=== PATIENT | female | born 1975 | race American Indian/Alaskan Native ===

== ENCOUNTER → 2017-07-08 | Outpatient (CLI) | payer BC, OTHER ==
[~2017-07-08] MED LIST: ALBU90OI6 INH; ALLEGRA ALLERG180 MG PO; ARIP10 PO; Augmentin 875-1 EACH PO; BUPR150ER PO; BUSP10 PO; Bactrim Ds Tab1 EACH PO; Cymbalta30 MG PO; FLUT220OIA INH; Keflex500 MG PO; LOSA50 PO; LOSARTAN POTASS25 MG PO; MECL25 PO; MEDR10 PO; MONT10T PO; MUSCLE RELAXOR; Norco 5-325 Ta1 EACH PO; ORTHO TRI-CYCL1 EACH PO; Pepcid40 MG PO; Percocet 5-3251 EACH PO; Pseudoephedrine30 MG PO; QUET25 PO; Robaxin-750750 MG PO; TIZANIDINE HCL4 MG PO; TRAM50 PO; TRAZ50 PO; VENL37.5ER PO; Zofran Odt4 MG SL
== END ==
LOC: LAB SHORT 13:18 → LAB 13:18
DX: B36.9 Superficial mycosis, unspecified (principal)
CPT/HCPCS: 87102

== ENCOUNTER 2017-08-08 06:19 | Emergency (ER) | payer OTHER, BC ==
[~2017-08-08] VITALS: Ht 162.6 cm; Wt 98.0 kg
== END 2017-08-08 08:14 | disposition home or self-care (01) ==
LOC: ER 06:19
DX: S39.012A Strain of muscle, fascia and tendon of lower back, initial encounter (principal); S86.912A Strain of unspecified muscle(s) and tendon(s) at lower leg level, left leg, initial encounter; S83.92XA Sprain of unspecified site of left knee, initial encounter; W01.0XXA Fall on same level from slipping, tripping and stumbling without subsequent striking against object, initial encounter; Y99.0 Civilian activity done for income or pay; J45.909 Unspecified asthma, uncomplicated; F41.9 Anxiety disorder, unspecified; I10 Essential (primary) hypertension; Z87.891 Personal history of nicotine dependence; Z88.8 Allergy status to other drugs, medicaments and biological substances; Z79.899 Other long term (current) drug therapy
CPT/HCPCS: 29505; 73562-LT; 99283

== ENCOUNTER 2017-09-18 11:23 | Emergency (ER) | payer BC, OTHER ==
[~2017-09-18] VITALS: Ht 162.6 cm; Wt 95.2 kg
[2017-09-18 12:20] LABS: Calcium, Ionized (POC) 1.18 mmol/L (1.10-1.46); Chloride (POC) 104 mmol/L (98-108); Creatinine (POC) 0.4 mg/dL (0.6-1.0); Glucose (ISTAT POC) 100 mg/dL (70-99); Hemoglobin (POC) 14.3 g/dL (12.0-16.0); Potassium (POC) 3.8 mmol/L (3.5-5.5); Sodium (POC) 141 mmol/L (135-148); Total CO2 (POC) 25 mmol/L (21-32)
== END 2017-09-18 13:38 | disposition home or self-care (01) ==
LOC: ER 11:23
PROVIDERS: Emergency Medicine
DX: E16.2 Hypoglycemia, unspecified (principal); Z88.8 Allergy status to other drugs, medicaments and biological substances; Z79.899 Other long term (current) drug therapy; J45.909 Unspecified asthma, uncomplicated; F41.9 Anxiety disorder, unspecified; I10 Essential (primary) hypertension; Z90.49 Acquired absence of other specified parts of digestive tract; Z87.891 Personal history of nicotine dependence
CPT/HCPCS: 36415; 80047; 82947; 85014; 99283

== ENCOUNTER → 2017-11-11 | Outpatient (CLI) | payer BC, OTHER ==
[2017-11-11 18:02] LABS: Anion Gap 9 mmol/L (6-16); Blood Urea Nitrogen 5 mg/dL (8-24); CO2, Blood 29 mmol/L (21-32); Chloride, Blood 107 mmol/L (98-108); Creatinine, Blood 0.71 mg/dL (0.40-1.00); Glomerular Filtration Rate >60 (60-); Glucose, Blood 86 mg/dL (70-99); Potassium, Blood 3.8 mmol/L (3.5-5.5); Sodium, Blood 145 mmol/L (136-145)
[2017-11-16 23:07] LABS: FREE INSULIN 67 uU/mL (.); TOTAL INSULIN 67 uU/mL (.)
== END ==
LOC: LAB SHORT 17:34 → LAB EV 17:34
PROVIDERS: Internal Medicine Endocrinology, Diabetes & Metabolism
DX: E16.1 Other hypoglycemia (principal)
CPT/HCPCS: 36415; 80048; 83525; 83527

== ENCOUNTER 2018-03-10 20:32 | Emergency (ER) | payer BC, OTHER ==
[~2018-03-10] VITALS: Ht 162.6 cm; Wt 92.1 kg
[2018-03-10] MEDS ORDERED: HYDCHL12.5 PO (22:20)
== END 2018-03-11 00:03 | disposition home or self-care (01) ==
LOC: ER 20:32
DX: I10 Essential (primary) hypertension (principal); Z88.8 Allergy status to other drugs, medicaments and biological substances; Z79.899 Other long term (current) drug therapy; Z87.891 Personal history of nicotine dependence
CPT/HCPCS: 70450; 96372; 99283-25; J1885

== ENCOUNTER 2018-08-05 22:23 | Emergency (ER) | payer BC, OTHER ==
[~2018-08-05] VITALS: Ht 162.6 cm; Wt 90.3 kg
[~2018-08-05 22:23] MED LIST changes: +HYDCHL12.5 PO
[2018-08-05] MEDS ORDERED: METF500 (22:37)
[2018-08-05] MEDS ORDERED: BUSP5 (22:38)
[2018-08-05] MEDS ORDERED: TRAM50 PO (22:38)
[2018-08-05] MEDS ORDERED: MELO7.5 (22:39)
[2018-08-06] MEDS ORDERED: IBUP400 PO (00:31)
[2018-08-06] MEDS ORDERED: Norco 10-325 T1 EACH PO (00:31)
== END 2018-08-06 00:44 | disposition home or self-care (01) ==
LOC: ER 22:23
DX: M25.461 Effusion, right knee (principal); Z88.5 Allergy status to narcotic agent; Z88.8 Allergy status to other drugs, medicaments and biological substances; I10 Essential (primary) hypertension; F41.9 Anxiety disorder, unspecified; Z90.49 Acquired absence of other specified parts of digestive tract; Z87.891 Personal history of nicotine dependence
CPT/HCPCS: 73564; 96372; 99283-25; J1885

== ENCOUNTER 2018-09-07 14:24 | Emergency (ER) | payer BC, OTHER ==
[~2018-09-07] VITALS: Ht 165.1 cm; Wt 85.7 kg
[~2018-09-07 14:24] MED LIST changes: +BUSP5; +IBUP400 PO; +MELO7.5; +METF500; +Norco 10-325 T1 EACH PO
[2018-09-07] MEDS ORDERED: Amoxicillin500 MG PO (15:24)
== END 2018-09-07 15:36 | disposition home or self-care (01) ==
LOC: ER 14:24
DX: K02.9 Dental caries, unspecified (principal); Z88.8 Allergy status to other drugs, medicaments and biological substances; Z79.899 Other long term (current) drug therapy; Z79.84 Long term (current) use of oral hypoglycemic drugs; Z79.891 Long term (current) use of opiate analgesic; F41.9 Anxiety disorder, unspecified; I10 Essential (primary) hypertension; J45.909 Unspecified asthma, uncomplicated; Z87.891 Personal history of nicotine dependence
CPT/HCPCS: 99282

== ENCOUNTER 2019-02-14 21:43 | Emergency (ER) | payer BC, OTHER ==
[~2019-02-14] VITALS: Ht 162.6 cm; Wt 94.8 kg
[~2019-02-14 21:43] MED LIST changes: +Amoxicillin500 MG PO
[2019-02-15 00:37] LABS: Source, Urine Clean Catch
[2019-02-15 00:39] LABS: Bilirubin, Urine Neg (Neg); Blood, Urine 2+ (Neg); Glucose Qualitative, Urine Neg (Neg); Ketones, Urine Neg (Neg); Leukocyte Esterase, Urine Neg (Neg); Nitrite, Urine Neg (Neg); Protein, Urine Neg (Neg); Urobilinogen, Urine NORM (Normal); pH, Urine 6.5 (5.0-8.0)
[2019-02-15 00:41] LABS: Appearance, Urine Clear (Clear); Color, Urine Yellow (P-Yellow)
[2019-02-15 00:51] LABS: Bacteria Few /hpf; Red Blood Cells, Urine 0-2 /hpf (0-2); Squamous Epithelial Cells Few /hpf (Few); White Blood Cells, Urine 0-2 /hpf (0-5)
== END 2019-02-15 00:10 | disposition left against medical advice (07) ==
LOC: ER 21:43
PROVIDERS: Physician Assistant
DX: Z53.21 Procedure and treatment not carried out due to patient leaving prior to being seen by health care provider (principal)
CPT/HCPCS: 81001; 99283

== ENCOUNTER → 2019-04-10 | Outpatient (CLI) | payer BC, OTHER ==
[2019-04-14 14:07] LABS: HPV 16 Negative (Negative); HPV 18 Negative (Negative); HPV OTHER HR TYPES Negative (Negative)
== END | disposition home or self-care (01) ==
LOC: LAB SHORT 12:00 → LAB 12:00
PROVIDERS: Obstetrics & Gynecology
DX: Z01.419 Encounter for gynecological examination (general) (routine) without abnormal findings (principal)
CPT/HCPCS: 87624; G0123

== ENCOUNTER 2019-04-28 10:43 | Emergency (ER) | payer BC, OTHER ==
[~2019-04-28] VITALS: Ht 162.6 cm; Wt 99.3 kg
[2019-04-28 11:41] LABS: BASOPHILS ABSOLUTE AUTO 0.07 K/mm3 (0.00-0.23); BASOPHILS PERCENT AUTO 1 % (0-2); EOSINOPHILS ABSOLUTE AUTO 0.58 K/mm3 (0.00-0.68); EOSINOPHILS PERCENT AUTO 8 % (0-6); Hematocrit 41.3 % (33.0-51.0); Hemoglobin 13.4 g/dL (11.5-16.0); IMMATURE GRAN ABSOLUTE AUTO 0.03 K/mm3 (0.00-0.10); IMMATURE GRAN PERCENT AUTO 0 % (0-1); LYMPHOCYTES ABSOLUTE AUTO 2.58 K/mm3 (0.84-5.20); LYMPHOCYTES PERCENT AUTO 36 % (21-46); MONOCYTES ABSOLUTE AUTO 0.62 K/mm3 (0.16-1.47); MONOCYTES PERCENT AUTO 9 % (4-13); Mean Corpuscular HGB 27.9 pg (26.0-34.0); Mean Corpuscular HGB Conc 32.4 g/dL (31.5-36.5); Mean Corpuscular Volume 86 fL (80-100); Mean Platelet Volume 8.2 fL (9.1-12.4); NEUTROPHILS ABSOLUTE AUTO 3.39 K/mm3 (1.96-9.15); NEUTROPHILS PERCENT AUTO 47 % (41-73); Platelet Count 440 K/mm3 (150-400); RDW Coefficient Variation 12.7 % (11.7-14.2); RDW Standard Deviation 39.8 fL (35.1-46.3); Red Blood Cell Count 4.81 M/mm3 (3.80-5.20); White Blood Cell Count 7.27 K/mm3 (4.00-11.30)
[2019-04-28 12:00] LABS: Alanine Aminotransfer (ALT/SGP 47 U/L (12-78); Albumin, Blood 3.9 g/dL (3.4-5.0); Alk Phos 115 U/L (50-136); Anion Gap 6 mmol/L (6-16); Aspartate Aminotrans (AST/SGOT 39 U/L (12-37); Bilirubin, Total 0.2 mg/dL (0.1-1.0); Blood Urea Nitrogen 5 mg/dL (8-24); Bun/Creatinine Ratio 8.6 (12.0-20.0); CO2, Blood 28 mmol/L (21-32); Calcium, Blood 9.2 mg/dL (8.5-10.1); Chloride, Blood 107 mmol/L (98-108); Creatinine, Blood 0.58 mg/dL (0.40-1.00); Glomerular Filtration Rate >60 (60-); Glucose, Blood 89 mg/dL (70-99); Potassium, Blood 3.4 mmol/L (3.5-5.5); Sodium, Blood 141 mmol/L (136-145); Total Protein, Blood 7.9 g/dL (6.4-8.2)
[2019-04-28] MEDS ORDERED: VENL150ER PO (12:35)
[2019-04-28] MEDS ORDERED: SITA100T2 PO (12:35)
[2019-04-28] MEDS ORDERED: GABA300 PO (12:35)
[2019-04-28] MEDS ORDERED: METF500 PO (12:36)
[2019-04-28] MEDS ORDERED: MELO7.5 PO (12:36)
[2019-04-28] MEDS ORDERED: TRAM50 PO (12:36)
[2019-04-28] MEDS ORDERED: HYDPAM50 PO (12:36)
[2019-04-28] MEDS ORDERED: HYDCHL25 PO (12:37)
[2019-04-28] MEDS ORDERED: NAPR550 PO (15:36)
== END 2019-04-28 15:50 | disposition home or self-care (01) ==
LOC: ER 10:43
PROVIDERS: Physician Assistant
DX: G25.3 Myoclonus (principal); F32.9 Major depressive disorder, single episode, unspecified; F41.9 Anxiety disorder, unspecified
CPT/HCPCS: 36415; 70450; 80053; 85025; 96374; 96375; 99284-25; J1885; J2060

== ENCOUNTER → 2019-12-14 | Outpatient (CLI) | payer BC, OTHER ==
[~2019-12-14] MED LIST changes: +CEPH500 PO; +Flomax0.4 MG PO; +GABA300 PO; +HYDCHL25 PO; +HYDPAM50 PO; +KETO10 PO; +MELO7.5 PO; +METF500 PO; +NAPR550 PO; +SITA100T2 PO; +VENL150ER PO
== END | disposition home or self-care (01) ==
LOC: LAB SHORT 18:51 → LAB EV 18:51
DX: J06.9 Acute upper respiratory infection, unspecified (principal); Z20.828 Contact with and (suspected) exposure to other viral communicable diseases
CPT/HCPCS: U0003

== ENCOUNTER 2020-01-28 18:44 | Emergency (ER) | payer BC, OTHER ==
[~2020-01-28] VITALS: Ht 162.6 cm; Wt 103.4 kg
[2020-01-28] MEDS ORDERED: Norco 7.5-3251 EACH PO (18:51)
[2020-01-28] MEDS ORDERED: IBUP800 PO (19:55)
[2020-01-28] MEDS ORDERED: CRUTCH2 XX (19:55)
== END 2020-01-28 20:09 | disposition home or self-care (01) ==
LOC: ER 18:44
DX: S83.91XA Sprain of unspecified site of right knee, initial encounter (principal); I10 Essential (primary) hypertension; J45.909 Unspecified asthma, uncomplicated; F41.9 Anxiety disorder, unspecified; Z79.899 Other long term (current) drug therapy; Z79.84 Long term (current) use of oral hypoglycemic drugs; Z88.8 Allergy status to other drugs, medicaments and biological substances; W01.0XXA Fall on same level from slipping, tripping and stumbling without subsequent striking against object, initial encounter
CPT/HCPCS: 73564; 99283-25

== ENCOUNTER 2020-04-28 10:13 | Inpatient (IN) | payer BC, OTHER ==
[~2020-04-28] VITALS: Ht 162.6 cm; Wt 98.9 kg
[~2020-04-28 10:13] MED LIST changes: +CRUTCH2 XX; -GABA300 PO; -HYDCHL25 PO; +IBUP800 PO; -MELO7.5 PO; -METF500 PO; -SITA100T2 PO
[2020-04-28 10:32] LABS: BASOPHILS ABSOLUTE AUTO 0.06 K/mm3 (0.00-0.23); BASOPHILS PERCENT AUTO 1 % (0-2); EOSINOPHILS ABSOLUTE AUTO 0.47 K/mm3 (0.00-0.68); EOSINOPHILS PERCENT AUTO 7 % (0-6); Hematocrit 40.4 % (33.0-51.0); Hemoglobin 13.1 g/dL (11.5-16.0); IMMATURE GRAN ABSOLUTE AUTO 0.02 K/mm3 (0.00-0.10); IMMATURE GRAN PERCENT AUTO 0 % (0-1); LYMPHOCYTES ABSOLUTE AUTO 2.18 K/mm3 (0.84-5.20); LYMPHOCYTES PERCENT AUTO 34 % (21-46); MONOCYTES ABSOLUTE AUTO 0.45 K/mm3 (0.16-1.47); MONOCYTES PERCENT AUTO 7 % (4-13); Mean Corpuscular HGB 27.5 pg (26.0-34.0); Mean Corpuscular HGB Conc 32.4 g/dL (31.5-36.5); Mean Corpuscular Volume 85 fL (80-100); Mean Platelet Volume 9.7 fL (9.1-12.4); NEUTROPHILS PERCENT AUTO 51 % (41-73); Platelet Count 424 K/mm3 (150-400); RDW Coefficient Variation 15.1 % (11.7-14.2); RDW Standard Deviation 46.8 fL (35.1-46.3); Red Blood Cell Count 4.77 M/mm3 (3.80-5.20); White Blood Cell Count 6.48 K/mm3 (4.00-11.30)
[2020-04-28 11:53] LABS: Alanine Aminotransfer (ALT/SGP 51 U/L (12-78); Albumin, Blood 3.5 g/dL (3.4-5.0); Albumin/Globulin Ratio 0.9 (0.8-1.8); Alk Phos 114 U/L (50-136); Anion Gap 5 mmol/L (6-16); Aspartate Aminotrans (AST/SGOT 49 U/L (12-37); Bilirubin, Total 0.4 mg/dL (0.1-1.0); Blood Urea Nitrogen 6 mg/dL (8-24); Bun/Creatinine Ratio 10.6 (12.0-20.0); CO2, Blood 29 mmol/L (21-32); Calcium, Blood 8.8 mg/dL (8.5-10.1); Chloride, Blood 110 mmol/L (98-108); Creatinine, Blood 0.57 mg/dL (0.40-1.00); Globulin, Blood 4.1 g/dL (2.2-4.0); Glomerular Filtration Rate >60 (60-); Glucose, Blood 81 mg/dL (70-99); Potassium, Blood 3.5 mmol/L (3.5-5.5); Sodium, Blood 144 mmol/L (136-145); Total Protein, Blood 7.6 g/dL (6.4-8.2); Troponin I <0.015 ng/mL (0.000-0.040)
[2020-04-28] MEDS ORDERED: Prinivil10 MG PO (12:39)
[2020-04-28] MEDS ORDERED: HYDCHL25 PO (12:39)
[2020-04-28] MEDS ORDERED: SITA100T2 PO (12:40)
[2020-04-28] MEDS ORDERED: Inderal80 MG PO (12:40)
[2020-04-28] MEDS ORDERED: METF500C PO (12:41)
[2020-04-28] MEDS ORDERED: GABA300 PO (12:41)
[2020-04-28] MEDS ORDERED: SERT100 PO (12:41)
[2020-04-28] MEDS ORDERED: Norco 7.5-3251 EACH PO (12:42)
[2020-04-28] MEDS ORDERED: ALBU90OI INH (13:19)
[2020-04-28] MEDS ORDERED: SYMBICORT 160-4.6 GM INH (13:19)
[2020-04-28 15:54] LABS: Influenza A, PCR NEGATIVE (NEGATIVE); Influenza B, PCR NEGATIVE (NEGATIVE); Resp Syncytial Virus, PCR NEGATIVE (NEGATIVE); SARS-Cov-2 (COVID-19) PCR, MMC NEGATIVE (NEGATIVE)
[2020-04-28 17:04] LABS: International Normalized Ratio 0.92; Prothrombin Time Results 9.9 Sec (9.7-11.5)
--- NOTE | 2020-04-28 18:49 | NUR ---
PT TO ICU 2 FROM ED AT 1715. PT ABLE TO INDEPENDENTLY STAND AND TRANSFER TO ICU BED WITHOUT DIFFICULTY OR INCREASE IN CHEST PAIN. PT REPORTS 3/10 SUBSTERNAL CHEST PAIN. PT DESCRIBES "CRUSHING" PAIN THAT MAKES HER INTERMITTENTLY FEEL SHORT OF BREATH. PT REPORTS PAIN TO LEFT ARM THAT STARTED FOLLOWING K+ INFUSION. PT DENIES PAIN TO LEFT SHOULDER AT THIS TIME. PT STATES PAIN DOES NOT WORSEN OR GET BETTER WITH MOVEMENT/REPOSITIONING. REPORTS THAT SHE STOPPED SMOKING 3 DAYS AGO. DENIES THAT CURRENT CHEST PAIN IS ANXIETY RELATED, STATES "I HAVE EXPERIENCED ANXIETY AND THIS FEELS DIFFERENT". PT CURRENTLY ON NITRO GTT @5 MCG/MIN. HEPARIN GTT STARTED AT 13 U/KG/HR (72 KG DOSE WT). NS @ 75 ML/HR. PT EATING DINNER AT THIS TIME, WILL BE NPO AFTER MIDNIGHT FOR ANTICIPATED ANGIO IN THE MORNING. PT DENIES NEEDS AT THIS TIME. VSS STABLE AND WNL. WILL REPORT TO ONCOMING NURSE.
--- NOTE | 2020-04-28 23:00 | NUR ---
ASSUMED CARE AT 1900 PT LAYING IN BED WATCHING TV, IS ALERT/ORIENTED AND ABLE TO MAKE HER NEEDS KNOWN. PT COMPLAINING OF CHEST PAIN 11/11, NITRO GTT TITRATED UP, SEE FLOW SHEET, NOW INFUSING AT 25MCG/MIN; PRN FENTANYL NOW ORDERED AND GIVEN TWICE, PRN HELPFUL BRINGING PAIN DOWN TO 3/10. SPO2 >94% ON RA. HR 60-70'S. SBP 100-130. NO COMPLAINTS OF NAUSEA AND ABLE TO TOLERATE FOOD AND LIQUIDS. HEPARIN INFUSING AT 13U/KG/HR. NEXT LAB DRAW AT 0000. PLAN FOR PT TO BE NPO AFTER MIDNIGHT. SEE SHIFT ASSESSMENT FOR FULL ASSESSMENT.
--- NOTE | 2020-04-29 02:08 | NUR ---
UPDATE PT CHEST PAIN INCREASES WITH EXERTION, EXAMPLE: GETTING OUT OF BED TO USE THE TOILET. CHEST PAIN INCREASES TO A 10/10 AND RADIATES TO HER BACK AND UP HER RIGHT ARM. NITRO TITRATED UP, SEE FLOW SHEET, NOW AT 35MCG/MIN, AND PRN FENTANYL GIVEN AND HELPFUL, BRINGING 10/10 PAIN DOWN TO 3-4/10. POWERGLIDE TO ANAND NOW IN PLACE. NEW ORDERS FROM PHARMACY TO CHANGE HEPARIN TO 15 UNITS/KG/HR, VARIFIED WITH BHARAT SAXENA. PT NOW SLEEPING COMFORTABLY.
[2020-04-29 04:08] LABS: Hematocrit 34.5 % (33.0-51.0); Hemoglobin 10.9 g/dL (11.5-16.0); Mean Corpuscular HGB Conc 31.6 g/dL (31.5-36.5); Mean Corpuscular Volume 86 fL (80-100); Mean Platelet Volume 8.7 fL (9.1-12.4); Platelet Count 326 K/mm3 (150-400); RDW Coefficient Variation 15.1 % (11.7-14.2); RDW Standard Deviation 47.5 fL (35.1-46.3); Red Blood Cell Count 4.03 M/mm3 (3.80-5.20); White Blood Cell Count 5.99 K/mm3 (4.00-11.30)
[2020-04-29 04:28] LABS: Anion Gap 3 mmol/L (6-16); Blood Urea Nitrogen 8 mg/dL (8-24); Bun/Creatinine Ratio 12.3 (12.0-20.0); CHOL/HDL RATIO 3.2; CO2, Blood 29 mmol/L (21-32); Calcium, Blood 8.3 mg/dL (8.5-10.1); Chloride, Blood 111 mmol/L (98-108); Cholesterol 152 mg/dL (50-200); Creatinine, Blood 0.65 mg/dL (0.40-1.00); Glomerular Filtration Rate >60 (60-); Glucose, Blood 84 mg/dL (70-99); HDL Cholesterol 47 mg/dL (>39); LDL/HDL RATIO 1.8; Low Density Lipoprotein Chol 86 mg/dL (0-110); Potassium, Blood 3.8 mmol/L (3.5-5.5); Sodium, Blood 143 mmol/L (136-145); Triglycerides 95 mg/dL (30-160); Very Low Density Lipoprot Chol 19 mg/dL (6-32)
--- NOTE | 2020-04-29 07:10 | NUR ---
END OF SHIFT SUMMARY PT SLEPT ON AND OFF T/O SHIFT. PT IS ALERT/ORIENTED AND ABLE TO MAKE HER NEEDS KNOWN. NITRO INFUSING AT 45MCG/MIN AND PRN FENTANYL GIVEN TO CONTROL PAIN. SPO2 >90% ON RA. AFIBRILE. HR 50-60'S. SBP 100-120. HEPARIN INFUSING AT 15 UNITS/KG/HR. PT NO COMPLAINTS OF NAUSEA AND TOLERATED LIQUIDS AND FOOD BEFORE MIDNIGHT, AT MIDNIGHT, PT NOW NPO. REPORT GIVEN TO AM RN.
--- NOTE | 2020-04-29 12:13 | NUR ---
PT ARRIVED BACK FROM [facility] REPORT RECEIVED OF CLEAR ANGIOGRAM. TR BAND IN PLACE TO RIGHT RADIAL WITH 12ML AND RIGHT GROIN ACCESS WITH PERCLOSE. BOTH SITES C/D/I, NO HEMATOMA. PT CONTINUES TO C/O CHEST PAIN 10/11. PT ARRIVED WITH NITRO GTT CONTINUING AT 50MCG/MIN. VITALS ARE STABLE. SINUS RHYTHM ON THE MONITOR.
--- NOTE | 2020-04-29 18:25 | NUR ---
SHIFT SUMMARY PT IS ALERT AND ORIENTEDx4. S/P ANGIOGRAM WITH NO INTERVENTIONS TODAY. TR BAND REMOVED FROM RIGHT RADIAL SITE. SITE IS C/D/I/NO HEMATOMA. RIGHT GROIN ACCESS WITH PERCLOSE ALSO C/D/I/NO HEMATOMA. VITALS HAVE BEEN STABLE. PT CONTINUES TO REPORT CHEST PAIN/PRESSURE, IMPROVED THIS EVENING WITH RATING 3/10. PT ABLE TO AMBULATE INDEPENDANTLY TO RESTROOM. MONITOR SHOWS PT TO BE IN SINUS RHYTHM.
--- NOTE | 2020-04-29 21:42 | NUR ---
ASSUMED CARE PT A/O. IN ROOM UPO WITH STANDBY ASSIST TO BATHROOM. PT REPORT PAIN TO RIGHT GROIN AFTER USING BATHROOM. REPORTS THAT THE PAIN GOES INTO BACK/GROIN/AND DOWN LEGS "THAT WHY I TAKE GAPENTIN." ARM BOARD IN PLACE OF RIGHT ARM, SITE WNL, NO SIGNS OF BLEEDIN, BRUISING OR HEMATOMA. RIGHT GROIN SITE IS UNCHANGED WITH PERCLOSE IN PLCAE. PT SATS ABOVE 95% ON ROOM AIR. MEDICAL STATUS WITH TELE. WILL CONTINUE TO MONITOR.
--- NOTE | 2020-04-29 23:06 | NUR ---
REPORT CALLED TO MEDICAL RN TODD ON ROOM ICU2 GOINING INTO 363. PATIRNT WILL BE TRANSPORTED VIA STRETCHER TO MEDICAL ROOM WITH BELONGINGS.
--- NOTE | 2020-04-30 02:11 | NUR ---
04/29/20 2330 PT RECEIVED TO ROOM 363 PER CART FROM ICU; REPORT RECEIVED FROM BRIDGETT RN; TELEMETRY REFLECTS NSR PER MARISABEL--CAMERA TECHNICIAN; DENIES CHEST PAIN OR SOB.
--- NOTE | 2020-04-30 03:07 | NUR ---
SHIFT SUMMARY: 44 Y/O FEMALE RESTED COMFORTABLY ALL SHIFT; TELEMETRY REFLECTS NSR PER MARISABEL--LETTERSET PRESS SET UP OPERATOR; PTS RIGHT GROIN AND RIGHT WRIST DRESSING DRY AND INTACT WITH NO EDEMA NOTED; PT WEARING RIGHT WRIST ARMBOARD; DENIES PAIN OR NAUSEA; ALERT AND ORIENTED X 4; BED LOW POSITION WITH CALL LIGHT AT SIDE.
[2020-04-30] MEDS ORDERED: Aspirin EC81 MG PO (10:11)
[2020-04-30] MEDS ORDERED: PANT40 PO (10:11)
--- NOTE | 2020-04-30 12:46 | NUR ---
PT DISCHARGED FROM THE UNIT. IV REMOVED, POWERGLIDE REMOVED. DISCHARGE INSTRUCTIONS REVIEWED. MEDICATIONS FAXED. PT LEFT UNIT VIA WHEEL CHAIR HER WILL DRIVE HER HOME.
== END 2020-04-30 12:31 | disposition home or self-care (01) | DRG 392 ==
LOC: ER 10:13 → ICUE 10:14 → ICUW 10:14 → ICUE 10:14 → MEDS 04-29 23:30
PROVIDERS: Emergency Medicine; Nurse Practitioner Acute Care; Pharmacist; ADMIT Internal Medicine
PROC: 4A023N7 Measurement of Cardiac Sampling and Pressure, Left Heart, Percutaneous Approach (ICD-10-PCS; principal; 2020-04-29)
PROC: B205YZZ Plain Radiography of Left Heart using Other Contrast (ICD-10-PCS; 2020-04-29)
DX: K21.9 Gastro-esophageal reflux disease without esophagitis (principal); K29.70 Gastritis, unspecified, without bleeding; E11.9 Type 2 diabetes mellitus without complications; I10 Essential (primary) hypertension; F32.9 Major depressive disorder, single episode, unspecified; F41.9 Anxiety disorder, unspecified; Z20.822 Contact with and (suspected) exposure to COVID-19; J44.9 Chronic obstructive pulmonary disease, unspecified; E66.01 Morbid (severe) obesity due to excess calories; I73.9 Peripheral vascular disease, unspecified; Z68.37 Body mass index [BMI] 37.0-37.9, adult; Z66 Do not resuscitate; Z87.891 Personal history of nicotine dependence; M19.90 Unspecified osteoarthritis, unspecified site
CPT/HCPCS: 0241U; 36415; 71046; 71260; 76937; 80048; 80053; 80061; 82947; 83036; 83690; 84484; 85025; 85027; 85610; 85730; 93005; 93010; 93306; 93458; 94640; 94760; 96365; 96366; 96368; 96375; 99152; 99153; 99285-25; A9270; C1751; C1760; C1769; C1894; J1644; J1650; J2250; J2270; J3010; J3480; J7030; J7050; Q9967

== ENCOUNTER → 2020-08-09 | Outpatient (CLI) | payer BC, OTHER ==
[~2020-08-09] MED LIST changes: +ALBU90OI INH; +Aspirin EC81 MG PO; +GABA300 PO; +HYDCHL25 PO; +Inderal80 MG PO; +METF500C PO; +Norco 7.5-3251 EACH PO; +PANT40 PO; +Prinivil10 MG PO; +SERT100 PO; +SITA100T2 PO; +SYMBICORT 160-4.6 GM INH
[2020-08-09 17:17] LABS: BASOPHILS ABSOLUTE AUTO 0.08 K/mm3 (0.00-0.23); BASOPHILS PERCENT AUTO 1 % (0-2); EOSINOPHILS ABSOLUTE AUTO 0.27 K/mm3 (0.00-0.68); EOSINOPHILS PERCENT AUTO 3 % (0-6); Hematocrit 41.8 % (33.0-51.0); Hemoglobin 13.4 g/dL (11.5-16.0); IMMATURE GRAN ABSOLUTE AUTO 0.04 K/mm3 (0.00-0.10); IMMATURE GRAN PERCENT AUTO 0 % (0-1); LYMPHOCYTES ABSOLUTE AUTO 2.19 K/mm3 (0.84-5.20); LYMPHOCYTES PERCENT AUTO 23 % (21-46); MONOCYTES ABSOLUTE AUTO 0.76 K/mm3 (0.16-1.47); MONOCYTES PERCENT AUTO 8 % (4-13); Mean Corpuscular HGB 27.3 pg (26.0-34.0); Mean Corpuscular HGB Conc 32.1 g/dL (31.5-36.5); Mean Corpuscular Volume 85 fL (80-100); Mean Platelet Volume 8.6 fL (9.1-12.4); NEUTROPHILS ABSOLUTE AUTO 6.34 K/mm3 (1.96-9.15); NEUTROPHILS PERCENT AUTO 66 % (41-73); Platelet Count 426 K/mm3 (150-400); RDW Coefficient Variation 15.3 % (11.7-14.2); RDW Standard Deviation 47.6 fL (35.1-46.3); White Blood Cell Count 9.68 K/mm3 (4.00-11.30)
[2020-08-09 17:33] LABS: Alanine Aminotransfer (ALT/SGP 39 U/L (12-78); Albumin, Blood 3.9 g/dL (3.4-5.0); Albumin/Globulin Ratio 0.9 (0.8-1.8); Alk Phos 109 U/L (40-126); Anion Gap 12 mmol/L (6-16); Aspartate Aminotrans (AST/SGOT 33 U/L (12-37); Bilirubin, Total 0.5 mg/dL (0.1-1.0); Blood Urea Nitrogen 5 mg/dL (8-24); Bun/Creatinine Ratio 7.1 (12.0-20.0); CO2, Blood 26 mmol/L (21-32); Calcium, Blood 9.7 mg/dL (8.5-10.1); Chloride, Blood 104 mmol/L (98-108); Globulin, Blood 4.3 g/dL (2.2-4.0); Glomerular Filtration Rate >60 (60-); Glucose, Blood 109 mg/dL (70-99); Potassium, Blood 3.1 mmol/L (3.5-5.5); Sodium, Blood 142 mmol/L (136-145); Total Protein, Blood 8.2 g/dL (6.4-8.2)
== END | disposition home or self-care (01) ==
LOC: LAB SHORT 17:12 → LAB EV 17:12
PROVIDERS: Physician Assistant
DX: R10.9 Unspecified abdominal pain (principal)
CPT/HCPCS: 80053; 85025; 87086

== ENCOUNTER 2020-08-13 13:07 | Emergency (ER) | payer BC, OTHER ==
[~2020-08-13] VITALS: Ht 165.1 cm; Wt 99.8 kg
[2020-08-13 13:27] LABS: BASOPHILS ABSOLUTE AUTO 0.07 K/mm3 (0.00-0.23); BASOPHILS PERCENT AUTO 1 % (0-2); EOSINOPHILS ABSOLUTE AUTO 0.26 K/mm3 (0.00-0.68); EOSINOPHILS PERCENT AUTO 3 % (0-6); Hematocrit 37.6 % (33.0-51.0); IMMATURE GRAN ABSOLUTE AUTO 0.03 K/mm3 (0.00-0.10); IMMATURE GRAN PERCENT AUTO 0 % (0-1); LYMPHOCYTES ABSOLUTE AUTO 2.38 K/mm3 (0.84-5.20); LYMPHOCYTES PERCENT AUTO 31 % (21-46); MONOCYTES ABSOLUTE AUTO 0.47 K/mm3 (0.16-1.47); MONOCYTES PERCENT AUTO 6 % (4-13); Mean Corpuscular HGB 27.7 pg (26.0-34.0); Mean Corpuscular HGB Conc 31.9 g/dL (31.5-36.5); Mean Corpuscular Volume 87 fL (80-100); Mean Platelet Volume 8.5 fL (9.1-12.4); NEUTROPHILS ABSOLUTE AUTO 4.45 K/mm3 (1.96-9.15); NEUTROPHILS PERCENT AUTO 58 % (41-73); Platelet Count 397 K/mm3 (150-400); RDW Coefficient Variation 14.6 % (11.7-14.2); RDW Standard Deviation 46.6 fL (35.1-46.3); Red Blood Cell Count 4.33 M/mm3 (3.80-5.20); White Blood Cell Count 7.66 K/mm3 (4.00-11.30)
[2020-08-13 13:54] LABS: Alanine Aminotransfer (ALT/SGP 35 U/L (12-78); Albumin, Blood 3.4 g/dL (3.4-5.0); Albumin/Globulin Ratio 0.9 (0.8-1.8); Alk Phos 97 U/L (50-136); Anion Gap 6 mmol/L (6-16); Aspartate Aminotrans (AST/SGOT 29 U/L (12-37); Bilirubin, Total 0.3 mg/dL (0.1-1.0); Blood Urea Nitrogen 6 mg/dL (8-24); Bun/Creatinine Ratio 7.3 (12.0-20.0); CO2, Blood 24 mmol/L (21-32); Calcium, Blood 9.1 mg/dL (8.5-10.1); Chloride, Blood 110 mmol/L (98-108); Creatinine, Blood 0.82 mg/dL (0.40-1.00); Ethanol (Alcohol), Blood, Med <3 mg/dL; Globulin, Blood 3.8 g/dL (2.2-4.0); Glomerular Filtration Rate >60 (60-); Glucose, Blood 109 mg/dL (70-99); Potassium, Blood 3.3 mmol/L (3.5-5.5); Salicylate <1.7 mg/dL (2.8-20.0); Sodium, Blood 140 mmol/L (136-145); Total Protein, Blood 7.2 g/dL (6.4-8.2); Troponin I <0.015 ng/mL (0.000-0.040)
[2020-08-13 14:01] LABS: Acetaminophen, Random <2.0 ug/mL (10.0-30.0)
[2020-08-13 14:09] LABS: Source, Urine Clean Catch
[2020-08-13 14:14] LABS: Appearance, Urine Clear (Clear); Bilirubin, Urine Neg (Neg); Blood, Urine 5+ (Neg); Color, Urine Yellow (P-Yellow); Glucose Qualitative, Urine Neg (Neg); Ketones, Urine Neg (Neg); Leukocyte Esterase, Urine Neg (Neg); Nitrite, Urine Neg (Neg); Protein, Urine Neg (Neg); Urobilinogen, Urine NORM (Normal); pH, Urine 6.5 (5.0-8.0)
[2020-08-13 14:20] LABS: Bacteria Few /hpf; Mucus Light (0-Heavy); Squamous Epithelial Cells Few /hpf (Few); White Blood Cells, Urine 0-2 /hpf (0-5)
[2020-08-13 14:24] LABS: U Amphetamine Screen Not Detected; U Barbituate Screen Not Detected; U Benzodiazapine Screen Not Detected; U Buprenorphine Screen Not Detected; U Cannabinoids Screen Not Detected; U Cocaine Screen Not Detected; U Methadone Screen Not Detected; U Methamphetamine Screen Not Detected; U Opiates Screen Not Detected; U Oxycodone Screen Not Detected; U Phencyclidine Screen Not Detected; U Propoxyphene Screen Not Detected
== END 2020-08-13 14:59 | disposition home or self-care (01) ==
LOC: ER 13:07
PROVIDERS: Emergency Medicine
DX: R55 Syncope and collapse (principal); Z79.899 Other long term (current) drug therapy
CPT/HCPCS: 80053; 81001; 81025; 84484; 85025; 93005; 93010; 96374; 99284-25; G0480; J1885

== ENCOUNTER 2020-10-08 09:49 | Emergency (ER) | payer BC, OTHER ==
[~2020-10-08] VITALS: Ht 162.6 cm; Wt 99.8 kg
[2020-10-08] MEDS ORDERED: OXYACE7.5T PO (12:07)
== END 2020-10-08 12:16 | disposition home or self-care (01) ==
LOC: ER 09:49
DX: M25.561 Pain in right knee (principal); M71.21 Synovial cyst of popliteal space [Baker], right knee; I10 Essential (primary) hypertension; E11.9 Type 2 diabetes mellitus without complications; G89.29 Other chronic pain; Z79.84 Long term (current) use of oral hypoglycemic drugs; Z88.8 Allergy status to other drugs, medicaments and biological substances; Z79.82 Long term (current) use of aspirin; Z87.891 Personal history of nicotine dependence; Z79.899 Other long term (current) drug therapy
CPT/HCPCS: 73562-RT; 93971; 99284-25; A9270

== ENCOUNTER 2021-02-13 13:22 | Emergency (ER) | payer BC, OTHER ==
[~2021-02-13] VITALS: Ht 162.6 cm; Wt 97.1 kg
[~2021-02-13 13:22] MED LIST changes: +OXYACE7.5T PO
[2021-02-13 14:41] LABS: BASOPHILS ABSOLUTE AUTO 0.07 K/mm3 (0.00-0.23); BASOPHILS PERCENT AUTO 1 % (0-2); EOSINOPHILS ABSOLUTE AUTO 0.58 K/mm3 (0.00-0.68); EOSINOPHILS PERCENT AUTO 7 % (0-6); Hematocrit 42.7 % (33.0-51.0); Hemoglobin 13.7 g/dL (11.5-16.0); IMMATURE GRAN ABSOLUTE AUTO 0.02 K/mm3 (0.00-0.10); IMMATURE GRAN PERCENT AUTO 0 % (0-1); LYMPHOCYTES ABSOLUTE AUTO 2.27 K/mm3 (0.84-5.20); LYMPHOCYTES PERCENT AUTO 29 % (21-46); MONOCYTES ABSOLUTE AUTO 0.54 K/mm3 (0.16-1.47); MONOCYTES PERCENT AUTO 7 % (4-13); Mean Corpuscular HGB Conc 32.1 g/dL (31.5-36.5); Mean Corpuscular Volume 87 fL (80-100); Mean Platelet Volume 8.6 fL (9.1-12.4); NEUTROPHILS ABSOLUTE AUTO 4.38 K/mm3 (1.96-9.15); NEUTROPHILS PERCENT AUTO 56 % (41-73); Platelet Count 305 K/mm3 (150-400); RDW Coefficient Variation 13.2 % (11.7-14.2); RDW Standard Deviation 42.4 fL (35.1-46.3); Red Blood Cell Count 4.89 M/mm3 (3.80-5.20); White Blood Cell Count 7.86 K/mm3 (4.00-11.30)
[2021-02-13 15:04] LABS: Alanine Aminotransfer (ALT/SGP 50 U/L (12-78); Albumin, Blood 3.7 g/dL (3.4-5.0); Albumin/Globulin Ratio 0.9 (0.8-1.8); Alk Phos 107 U/L (50-136); Anion Gap 8 mmol/L (6-16); Aspartate Aminotrans (AST/SGOT 62 U/L (12-37); Bilirubin, Total 0.3 mg/dL (0.1-1.0); Blood Urea Nitrogen 5 mg/dL (8-24); Bun/Creatinine Ratio 9.3 (12.0-20.0); CO2, Blood 25 mmol/L (21-32); Chloride, Blood 108 mmol/L (98-108); Creatinine, Blood 0.54 mg/dL (0.40-1.00); Globulin, Blood 3.9 g/dL (2.2-4.0); Glomerular Filtration Rate >60 (60-); Glucose, Blood 100 mg/dL (70-99); Potassium, Blood 4.1 mmol/L (3.5-5.5); Sodium, Blood 141 mmol/L (136-145); Total Protein, Blood 7.6 g/dL (6.4-8.2)
[2021-02-13] MEDS ORDERED: GLYDO6 M2 PR (16:24)
== END 2021-02-13 16:30 | disposition home or self-care (01) ==
LOC: ER 13:22
PROVIDERS: Emergency Medicine
DX: K60.2 Anal fissure, unspecified (principal); K64.4 Residual hemorrhoidal skin tags; K64.8 Other hemorrhoids; I10 Essential (primary) hypertension; E11.9 Type 2 diabetes mellitus without complications; F17.210 Nicotine dependence, cigarettes, uncomplicated; Z79.899 Other long term (current) drug therapy
CPT/HCPCS: 36415; 46600; 80053; 85025; 99283-25

== ENCOUNTER → 2021-05-02 | Outpatient (CLI) | payer BC, OTHER ==
[~2021-05-02] MED LIST changes: +GLYDO6 M2 PR
== END | disposition home or self-care (01) ==
LOC: LAB SHORT 12:54
DX: R10.2 Pelvic and perineal pain (principal)
CPT/HCPCS: 88305

== ENCOUNTER → 2022-01-30 | Outpatient (CLI) | payer BC, OTHER ==
[~2022-01-30] MED LIST changes: +CALAMINE LOTIO177 ML TOP; +Mupirocin22 GM TOP
== END | disposition home or self-care (01) ==
LOC: LAB SHORT 11:08 → LAB 11:08
DX: E11.49 Type 2 diabetes mellitus with other diabetic neurological complication (principal)
CPT/HCPCS: 82043

== ENCOUNTER 2022-02-14 16:11 | Emergency (ER) | payer OTHER, BC ==
[~2022-02-14] VITALS: Ht 162.6 cm; Wt 98.9 kg
== END 2022-02-14 18:18 | disposition home or self-care (01) ==
LOC: ER 16:11
DX: S20.211A Contusion of right front wall of thorax, initial encounter (principal); W01.0XXA Fall on same level from slipping, tripping and stumbling without subsequent striking against object, initial encounter; I10 Essential (primary) hypertension; J45.909 Unspecified asthma, uncomplicated; F17.210 Nicotine dependence, cigarettes, uncomplicated; Z88.8 Allergy status to other drugs, medicaments and biological substances; Z79.899 Other long term (current) drug therapy; Z79.82 Long term (current) use of aspirin
CPT/HCPCS: 71101; A9270; J1885

== ENCOUNTER 2022-12-13 18:16 | Observation (INO) | payer BC, OTHER ==
[~2022-12-13] VITALS: Ht 162.6 cm; Wt 95.2 kg
[2022-12-13 18:38] LABS: BASOPHILS ABSOLUTE AUTO 0.05 K/mm3 (0.00-0.23); BASOPHILS PERCENT AUTO 1 % (0-2); EOSINOPHILS ABSOLUTE AUTO 0.27 K/mm3 (0.00-0.68); EOSINOPHILS PERCENT AUTO 3 % (0-6); Hemoglobin 13.4 g/dL (11.5-16.0); IMMATURE GRAN ABSOLUTE AUTO 0.03 K/mm3 (0.00-0.10); IMMATURE GRAN PERCENT AUTO 0 % (0-1); LYMPHOCYTES ABSOLUTE AUTO 2.84 K/mm3 (0.84-5.20); LYMPHOCYTES PERCENT AUTO 27 % (21-46); MONOCYTES PERCENT AUTO 6 % (4-13); Mean Corpuscular HGB 28.6 pg (26.0-34.0); Mean Corpuscular HGB Conc 33.5 g/dL (31.5-36.5); Mean Corpuscular Volume 85 fL (80-100); Mean Platelet Volume 8.6 fL (9.1-12.4); NEUTROPHILS ABSOLUTE AUTO 6.66 K/mm3 (1.96-9.15); NEUTROPHILS PERCENT AUTO 64 % (41-73); Platelet Count 340 K/mm3 (150-400); RDW Coefficient Variation 12.4 % (11.7-14.2); RDW Standard Deviation 38.5 fL (35.1-46.3); Red Blood Cell Count 4.69 M/mm3 (3.80-5.20); White Blood Cell Count 10.45 K/mm3 (4.00-11.30)
[2022-12-13 19:29] LABS: Alanine Aminotransfer (ALT/SGP 41 U/L (12-78); Albumin, Blood 3.8 g/dL (3.4-5.0); Albumin/Globulin Ratio 0.8 (0.8-1.8); Alk Phos 124 U/L (50-136); Anion Gap 9 mmol/L (6-16); Aspartate Aminotrans (AST/SGOT 26 U/L (12-37); Bilirubin, Total 0.2 mg/dL (0.1-1.0); Blood Urea Nitrogen 6 mg/dL (8-24); Bun/Creatinine Ratio 9.3 (12.0-20.0); CO2, Blood 23 mmol/L (21-32); Calcium, Blood 9.3 mg/dL (8.5-10.1); Chloride, Blood 110 mmol/L (98-108); Creatinine, Blood 0.65 mg/dL (0.40-1.00); Ethanol (Alcohol), Blood, Med <3 mg/dL; Globulin, Blood 4.5 g/dL (2.2-4.0); Glomerular Filtration Rate 110 (60-); Glucose, Blood 121 mg/dL (70-99); Sodium, Blood 142 mmol/L (136-145); Total Protein, Blood 8.3 g/dL (6.4-8.2)
[2022-12-13] MEDS ORDERED: PRAZ1 PO (22:33)
[2022-12-13] MEDS ORDERED: VENL150ER PO (22:34)
[2022-12-13] MEDS ORDERED: TRAZ100 PO (22:34)
[2022-12-13] MEDS ORDERED: VENL75ER PO (22:35)
[2022-12-14 00:07] VITALS: BP 125/79
[2022-12-14 00:23] LABS: U Amphetamine Screen Not Detected; U Barbituate Screen Not Detected; U Benzodiazapine Screen Not Detected; U Buprenorphine Screen Not Detected; U Cannabinoids Screen Not Detected; U Cocaine Screen Not Detected; U Methadone Screen Not Detected; U Methamphetamine Screen Not Detected; U Opiates Screen DETECTED; U Oxycodone Screen Not Detected; U Phencyclidine Screen Not Detected; U Propoxyphene Screen Not Detected
--- NOTE | 2022-12-14 02:22 | NUR ---
SHIFT RAHULY. PT ARRIVED BY MOHIT AND SLID ACROSS GURNEY TO BED. PT ALERT AND ORIENTED X 4. PT HAS NUMBNESS TO FEET AND TO LEFT LEG AND FOOT. PT HAS NEROPATHY TO FEET. PT HAS LEFT SIDE DEFICETAND GRASP WEAKER UNABLE TO PUSH PULL CAN ONLY PARTIALY LIFT LEFT ARM , BUT CAN NOT LIFT LEFT LEG AT ALL. DID BEDSIDE SWALLOW PT HAD NO DIFFICULTY WITH WATER OF CRACKER. PT GIVEN SANDWITCH AND SOME SF PUDDING TO EAT. PT REQUESTED PAIN MED, PT HAVING CHRONIC BACK PAIN. A LITTLE LATER PT ABLR TO LIFT LEFYT ARM TO ABOVE HER HEAD. PT RESTING IN BED, CALL LIGHT IN REACH.
[2022-12-14 03:03] VITALS: BP 111/66
[2022-12-14 04:57] LABS: Hemoglobin 12.3 g/dL (11.5-16.0); Mean Corpuscular HGB 28.5 pg (26.0-34.0); Mean Corpuscular HGB Conc 33.2 g/dL (31.5-36.5); Mean Corpuscular Volume 86 fL (80-100); Mean Platelet Volume 8.6 fL (9.1-12.4); Platelet Count 324 K/mm3 (150-400); RDW Coefficient Variation 12.5 % (11.7-14.2); RDW Standard Deviation 39.1 fL (35.1-46.3); Red Blood Cell Count 4.31 M/mm3 (3.80-5.20); White Blood Cell Count 8.41 K/mm3 (4.00-11.30)
[2022-12-14 05:39] LABS: Anion Gap 5 mmol/L (6-16); Blood Urea Nitrogen 5 mg/dL (8-24); Bun/Creatinine Ratio 7.1 (12.0-20.0); CHOL/HDL RATIO 3.2; CO2, Blood 26 mmol/L (21-32); Chloride, Blood 110 mmol/L (98-108); Cholesterol 117 mg/dL (50-200); Creatinine, Blood 0.71 mg/dL (0.40-1.00); Glomerular Filtration Rate 106 (60-); Glucose, Blood 107 mg/dL (70-99); HDL Cholesterol 37 mg/dL (>39); LDL/HDL RATIO 1.3; Low Density Lipoprotein Chol 48 mg/dL (0-110); Potassium, Blood 3.3 mmol/L (3.5-5.5); Sodium, Blood 141 mmol/L (136-145); Triglycerides 162 mg/dL (30-160); Very Low Density Lipoprot Chol 32 mg/dL (6-32)
[2022-12-14 08:11] VITALS: BP 120/87
[2022-12-14] MEDS ORDERED: UBRELVY50 MG PO (15:28)
--- NOTE | 2022-12-14 16:31 | NUR ---
DISCUSSED DISCHARGE INSTRUCTIONS WITH PT AND SPOUSE. SENT HOME SPACER FOR INHALER PER RT WELL FWW FACILITATED BY CARE COORDINATION. PT AND SPOUSE VERBALIZED UNDERSTANDING OF DISCHARGE INSTRUCTIONS AND WRITTEN COPY PROVIDED. IV REMOVED. PT TRANSPORTED WITH PERSONAL BELONGINGS TO [facility] FOR TRANSPORTATION HOME.
== END 2022-12-14 17:06 | disposition home or self-care (01) ==
LOC: ER 18:16 → MEDS 18:17 → ER 18:17 → MEDS 18:18 → ER 22:46 → MEDS 22:46 → ENPENDDIS 12-14 13:51 → MEDS 12-14 17:06
PROVIDERS: Emergency Medicine; Nurse Practitioner Acute Care; ADMIT Internal Medicine
DX: I63.9 Cerebral infarction, unspecified (principal); E11.42 Type 2 diabetes mellitus with diabetic polyneuropathy; I10 Essential (primary) hypertension; J45.909 Unspecified asthma, uncomplicated; F32.9 Major depressive disorder, single episode, unspecified; G89.29 Other chronic pain; M25.569 Pain in unspecified knee; F17.210 Nicotine dependence, cigarettes, uncomplicated; K21.9 Gastro-esophageal reflux disease without esophagitis; E66.01 Morbid (severe) obesity due to excess calories; G43.909 Migraine, unspecified, not intractable, without status migrainosus; Z79.82 Long term (current) use of aspirin; Z79.84 Long term (current) use of oral hypoglycemic drugs; Z79.899 Other long term (current) drug therapy; Z85.41 Personal history of malignant neoplasm of cervix uteri
CPT/HCPCS: 36415; 70450; 70496; 70498; 70551; 71045; 80048; 80053; 80061; 82947; 83036; 84484; 85025; 85027; 92610; 93005; 93010; 93306; 94640; 94664; 94760; 96374-59; 96375-59; 97110; 97112; 97116; 97162; 97166; 97535; 99285-25; A9270; G0378; J1650; J2060; J2270; J2405; Q9967

== ENCOUNTER → 2023-01-02 | Outpatient (CLI) | payer BC, OTHER ==
[~2023-01-02] MED LIST changes: +PRAZ1 PO; +TRAZ100 PO; +UBRELVY50 MG PO; +VENL75ER PO
[2023-01-07 12:07] LABS: HPV 16 Negative (Negative); HPV 18 Negative (Negative); HPV OTHER HR TYPES Negative (Negative)
== END ==
LOC: LAB 15:34 → LAB SHORT 15:34
PROVIDERS: Obstetrics & Gynecology
DX: Z01.419 Encounter for gynecological examination (general) (routine) without abnormal findings (principal)
CPT/HCPCS: 87624; G0145

== ENCOUNTER 2023-03-20 08:25 | Day surgery (SDC) | payer BC, OTHER ==
[~2023-03-20] VITALS: Ht 162.6 cm; Wt 98.2 kg
[2023-03-20] VITALS (21 sets, daily range): BP systolic 145–173; BP diastolic 84–111
[~2023-03-20 08:25] MED LIST changes: +ALBU2.5V5 INH; +Hydroxyzine HCl25 MG PO; +Lisinopril-Hct1 EAC4 PO; +METF500 PO; +OXYC5 PO; +TOPI25 PO
[2023-03-20] MEDS ORDERED: OXYCODONE-ACET1 EA13 PO (08:42)
[2023-03-20] MEDS ORDERED: PRAZ2 PO (08:43)
[2023-03-20] MEDS ORDERED: PRAZOSIN HCL1 M2 (08:44)
[2023-03-20] MEDS ORDERED: Flurbiprofen100 MG PO (08:56)
[2023-03-20] MEDS ORDERED: Penicillin V P500 MG PO (08:56)
[2023-03-20] MEDS ORDERED: UBRELVY50 MG PO (08:58)
[2023-03-20] MEDS ORDERED: ASPI81CH PO (08:58)
[2023-03-20] MEDS ORDERED: SYMBICORT 160-4.6 GM INH (08:58)
[2023-03-20 10:15] LABS: Albumin, Blood 3.8 g/dL (3.4-5.0); Albumin/Globulin Ratio 0.9 (0.8-1.8); Bilirubin, Total 0.4 mg/dL (0.1-1.0); Bun/Creatinine Ratio 9.1 (12.0-20.0); Calcium, Blood 9.1 mg/dL (8.5-10.1); Creatinine, Blood 0.55 mg/dL (0.40-1.00); Globulin, Blood 4.4 g/dL (2.2-4.0); Potassium, Blood 3.5 mmol/L (3.5-5.5); Total Protein, Blood 8.2 g/dL (6.4-8.2)
--- NOTE | 2023-03-20 10:15 | NUR ---
History, Chart, Medications and Allergies reviewed before start of procedure. Patient up to Ambulate independently. Gait steady. Pre-Op teaching done. Pt verbalizes understanding. Patient confirms NPO status and agrees with scheduled surgery. Patient reports completing Chlorhexadine shower X2 prior to admission to hospital. Surgical site prepped with 2% Chlorhexidine cloth wipe. Patient States Post-Procedure ride home has been arranged.
--- NOTE | 2023-03-20 14:00 | NUR ---
ARRIVAL TO SURGICAL UNIT DROWSY BUT AWAKENS EASILY. 4 PERSON SLIDE TO HOSPITAL BED. ASSESSMENT ASCHARTED. PT THEN ASKS TO USE RESTROOM TO VOID. 2 ASSIST TO BATHROOM. NO DIZZINESS OR LIGHTHEADEDNESS. STRONG, STEADY GAIT. VOIDS LARGE AMOUNT, SERENITY PAD PLACED, & 1 ASSIST BACK TO BED. HTN NOTED. DENIES N/V & REPORTS FEELING HUNGRY. SNACKS & DRINKS GIVEN.
--- NOTE | 2023-03-20 19:27 | NUR ---
SHIFT SUMMARY PT IS DOING WELL, ALTHOUGH RATES PAIN HIGH BUT ALSO STATES SHE FEELS BETTER THAN BEFORE SURGERY DESPITE SHARP PAINS. EATING, DRINKING, & VOIDING WELL. PLEASANT, LAUGHING, & COOPERATIVE. HTN NOTED & NOTIFIED MD. HOME MEDS ORDERED.
[2023-03-21 04:10] VITALS: BP 137/78
--- NOTE | 2023-03-21 04:17 | NUR ---
SHIFT SUMMARY POD 1 TOTAL LAP HYSTER PT ABLE TO SLEEP T/O NIGHT. PAIN MANAGED PER EMAR. PT HAD ON INCIDENT OF VOMITING, POSSIBLY DUE TO EATING OUTSIDE FOOD. PT TOLERATING PO INTAKE, VOIDING. SCANT AMOUNT OF BLOOD ON SERENITY PAD. X4 LAP SITES, CLOSED WITH GLUE ALL, C/D/I. NO OTHER CONCERNS AT THIS TIME. CALL LIGHT WITHIN REACH
[2023-03-21 07:14] VITALS: BP 138/84
[2023-03-21] MEDS ORDERED: METF500 PO (09:32)
[2023-03-21] MEDS ORDERED: SIME80CH PO (09:33)
--- NOTE | 2023-03-21 11:17 | NUR ---
DISCHARGE PT DISCHARGED HOME FROM UNIT AT APROX 1117. PT GIVEN WRITTEN AND VERBAL DISCHARGE INSTRUCTIONS AND VERBALIZED UNDERSTANDING OF THESE INSTRUCTIONS. IV REMOVED X'S 2. WC TO CAR.
== END 2023-03-21 11:15 | disposition home or self-care (01) ==
LOC: ORSCMMR 08:25 → ORD 10:00 → SURS 13:43 → ORSCMMR 03-21 11:15
PROVIDERS: Obstetrics & Gynecology
PROC: 0UT9FZZ Resection of Uterus, Via Natural or Artificial Opening With Percutaneous Endoscopic Assistance (ICD-10-PCS; principal; 2023-03-20 10:00)
PROC: 0UT7FZZ Resection of Bilateral Fallopian Tubes, Via Natural or Artificial Opening With Percutaneous Endoscopic Assistance (ICD-10-PCS; principal; 2023-03-20 10:00)
DX: N80.03 Adenomyosis of the uterus (principal); N92.0 Excessive and frequent menstruation with regular cycle; N94.4 Primary dysmenorrhea; N83.8 Other noninflammatory disorders of ovary, fallopian tube and broad ligament; E11.9 Type 2 diabetes mellitus without complications; I10 Essential (primary) hypertension; Z87.891 Personal history of nicotine dependence; J45.909 Unspecified asthma, uncomplicated; F41.9 Anxiety disorder, unspecified; F32.A Depression, unspecified; Z79.84 Long term (current) use of oral hypoglycemic drugs; Z79.899 Other long term (current) drug therapy; Z79.82 Long term (current) use of aspirin; Z86.73 Personal history of transient ischemic attack (TIA), and cerebral infarction without residual deficits; Z68.37 Body mass index [BMI] 37.0-37.9, adult
CPT/HCPCS: 80053; 82947; 86850; 86900; 86901; 88307; 94762; A9270; J0690; J1100; J1170; J1885; J2250; J2405; J2704; J3010; J7120

== ENCOUNTER 2023-06-23 18:25 | Emergency (ER) | payer BC, OTHER ==
[~2023-06-23] VITALS: Ht 162.6 cm; Wt 98.4 kg
[~2023-06-23 18:25] MED LIST changes: +ASPI81CH PO; +Flurbiprofen100 MG PO; +OXYCODONE-ACET1 EA13 PO; +PRAZ2 PO; +PRAZOSIN HCL1 M2; +Penicillin V P500 MG PO; +SIME80CH PO
[2023-06-23 18:55] LABS: BASOPHILS ABSOLUTE AUTO 0.06 K/mm3 (0.00-0.23); BASOPHILS PERCENT AUTO 1 % (0-2); EOSINOPHILS ABSOLUTE AUTO 0.34 K/mm3 (0.00-0.68); EOSINOPHILS PERCENT AUTO 4 % (0-6); Hematocrit 40.6 % (33.0-51.0); Hemoglobin 13.2 g/dL (11.5-16.0); IMMATURE GRAN ABSOLUTE AUTO 0.03 K/mm3 (0.00-0.10); IMMATURE GRAN PERCENT AUTO 0 % (0-1); LYMPHOCYTES ABSOLUTE AUTO 2.66 K/mm3 (0.84-5.20); LYMPHOCYTES PERCENT AUTO 33 % (21-46); MONOCYTES ABSOLUTE AUTO 0.59 K/mm3 (0.16-1.47); MONOCYTES PERCENT AUTO 7 % (4-13); Mean Corpuscular HGB 28.3 pg (26.0-34.0); Mean Corpuscular HGB Conc 32.5 g/dL (31.5-36.5); Mean Corpuscular Volume 87 fL (80-100); Mean Platelet Volume 8.3 fL (9.1-12.4); NEUTROPHILS ABSOLUTE AUTO 4.29 K/mm3 (1.96-9.15); NEUTROPHILS PERCENT AUTO 54 % (41-73); NRBC ABSOLUTE 0.04 K/mm3 (0.00-0.02); NRBC Auto 0.5 /100 WBC (0.0-0.2); Platelet Count 339 K/mm3 (150-400); RDW Coefficient Variation 12.9 % (11.7-14.2); RDW Standard Deviation 40.8 fL (35.1-46.3); Red Blood Cell Count 4.67 M/mm3 (3.80-5.20); White Blood Cell Count 7.97 K/mm3 (4.00-11.30)
[2023-06-23 19:14] LABS: Albumin, Blood 3.6 g/dL (3.4-5.0); Albumin/Globulin Ratio 0.9 (0.8-1.8); Bilirubin, Total 0.3 mg/dL (0.1-1.0); Bun/Creatinine Ratio 14.5 (12.0-20.0); Calcium, Blood 9.2 mg/dL (8.5-10.1); Creatinine, Blood 0.48 mg/dL (0.40-1.00); Globulin, Blood 4.1 g/dL (2.2-4.0); Potassium, Blood 3.6 mmol/L (3.5-5.5); Total Protein, Blood 7.7 g/dL (6.4-8.2)
[2023-06-23] MEDS ORDERED: Lisinopril 10 MG Tab PO ONE (19:15)
[2023-06-23] MEDS ORDERED: HydroCHLOROthiazide 25 mg Tab PO ONE (19:15)
[2023-06-23] MEDS ORDERED: Lisinopril-Hct1 EAC4 PO (19:25)
[2023-06-23 19:30] VITALS: BP 147/96
== END 2023-06-23 19:37 | disposition home or self-care (01) ==
LOC: ER 18:25
PROVIDERS: Emergency Medicine
DX: I10 Essential (primary) hypertension (principal); E11.9 Type 2 diabetes mellitus without complications; F17.210 Nicotine dependence, cigarettes, uncomplicated; Z79.84 Long term (current) use of oral hypoglycemic drugs; Z79.899 Other long term (current) drug therapy
CPT/HCPCS: 80053; 84484; 85025; 93005; 93010; 99283-25; A9270

== ENCOUNTER 2023-09-15 04:34 | Emergency (ER) | payer BC, OTHER ==
[~2023-09-15] VITALS: Ht 162.6 cm; Wt 98.0 kg
[2023-09-15 05:09] LABS: BASOPHILS ABSOLUTE AUTO 0.06 K/mm3 (0.00-0.23); BASOPHILS PERCENT AUTO 1 % (0-2); EOSINOPHILS ABSOLUTE AUTO 0.31 K/mm3 (0.00-0.68); EOSINOPHILS PERCENT AUTO 4 % (0-6); Hematocrit 37.2 % (33.0-51.0); Hemoglobin 12.1 g/dL (11.5-16.0); IMMATURE GRAN ABSOLUTE AUTO 0.01 K/mm3 (0.00-0.10); IMMATURE GRAN PERCENT AUTO 0 % (0-1); LYMPHOCYTES ABSOLUTE AUTO 2.26 K/mm3 (0.84-5.20); LYMPHOCYTES PERCENT AUTO 30 % (21-46); MONOCYTES ABSOLUTE AUTO 0.56 K/mm3 (0.16-1.47); MONOCYTES PERCENT AUTO 7 % (4-13); Mean Corpuscular HGB 28.5 pg (26.0-34.0); Mean Corpuscular HGB Conc 32.5 g/dL (31.5-36.5); Mean Corpuscular Volume 88 fL (80-100); Mean Platelet Volume 8.8 fL (9.1-12.4); NEUTROPHILS PERCENT AUTO 58 % (41-73); Platelet Count 353 K/mm3 (150-400); RDW Coefficient Variation 12.9 % (11.7-14.2); RDW Standard Deviation 41.1 fL (35.1-46.3); Red Blood Cell Count 4.24 M/mm3 (3.80-5.20)
[2023-09-15 05:28] LABS: Source, Urine Clean Catch
[2023-09-15 05:32] LABS: Appearance, Urine Hazy (Clear); Bilirubin, Urine Neg (Neg); Blood, Urine Neg (Neg); Color, Urine Yellow (P-Yellow); Glucose Qualitative, Urine Neg (Neg); Ketones, Urine Neg (Neg); Leukocyte Esterase, Urine Neg (Neg); Nitrite, Urine Neg (Neg); Protein, Urine 1+ (Neg); Urobilinogen, Urine NORM (Normal)
[2023-09-15 05:39] LABS: Bacteria Many /hpf; Red Blood Cells, Urine Not Seen /hpf (0-2); Squamous Epithelial Cells Many /hpf (Few); White Blood Cells, Urine 0-2 /hpf (0-5)
[2023-09-15 05:43] LABS: Albumin, Blood 3.4 g/dL (3.4-5.0); Albumin/Globulin Ratio 0.8 (0.8-1.8); Bilirubin, Total 0.6 mg/dL (0.1-1.0); Bun/Creatinine Ratio 12.9 (12.0-20.0); Calcium, Blood 9.1 mg/dL (8.5-10.1); Creatinine, Blood 0.54 mg/dL (0.40-1.00); Potassium, Blood 3.9 mmol/L (3.5-5.5); Total Protein, Blood 7.4 g/dL (6.4-8.2)
[2023-09-15 05:46] LABS: U Amphetamine Screen Not Detected; U Barbituate Screen Not Detected; U Benzodiazapine Screen Not Detected; U Buprenorphine Screen Not Detected; U Cannabinoids Screen Not Detected; U Cocaine Screen Not Detected; U Methadone Screen Not Detected; U Methamphetamine Screen Not Detected; U Opiates Screen Not Detected; U Oxycodone Screen Not Detected; U Phencyclidine Screen Not Detected
[2023-09-15] MEDS ORDERED: ARIPIPRAZOLE2 M1 PO (06:09)
[2023-09-15] MEDS ORDERED: ONDA4 PO (06:10)
[2023-09-15] MEDS ORDERED: Famotidine 10 MG/ML 2ML Vial IV ONE (06:35)
[2023-09-15] MEDS ORDERED: Ondansetron HCl 2 MG / ML 2ML Vial IV ONE (06:35)
[2023-09-15] MEDS ORDERED: Mag Hydrox/AL Hydrox/Simeth 30 ML UDC PO ONE (06:35)
[2023-09-15 07:29] VITALS: BP 99/54
[2023-09-15] MEDS ORDERED: FAMO20 PO (08:24)
== END 2023-09-15 08:48 | disposition home or self-care (01) ==
LOC: ER 04:34
PROVIDERS: Emergency Medicine
DX: R55 Syncope and collapse (principal); K29.70 Gastritis, unspecified, without bleeding; G89.29 Other chronic pain; Z88.8 Allergy status to other drugs, medicaments and biological substances; Z88.5 Allergy status to narcotic agent; Z79.899 Other long term (current) drug therapy; Z79.84 Long term (current) use of oral hypoglycemic drugs; Z79.82 Long term (current) use of aspirin; J45.909 Unspecified asthma, uncomplicated; F17.210 Nicotine dependence, cigarettes, uncomplicated; E11.42 Type 2 diabetes mellitus with diabetic polyneuropathy; I10 Essential (primary) hypertension
CPT/HCPCS: 70450; 73562-RT; 80053; 81001; 84146; 85025; A9270; J2405

== ENCOUNTER 2024-05-10 11:09 | Emergency (ER) | payer BC, OTHER ==
[~2024-05-10] VITALS: Ht 162.6 cm; Wt 91.2 kg
[~2024-05-10 11:09] MED LIST changes: +ARIPIPRAZOLE2 M1 PO; +FAMO20 PO; +ONDA4 PO; +PERCOCET 10-321 EA10 PO
[2024-05-10 12:15] LABS: BASOPHILS ABSOLUTE AUTO 0.08 K/mm3 (0.00-0.23); BASOPHILS PERCENT AUTO 1 % (0-2); EOSINOPHILS ABSOLUTE AUTO 1.02 K/mm3 (0.00-0.68); EOSINOPHILS PERCENT AUTO 12 % (0-6); Hematocrit 41.5 % (33.0-51.0); Hemoglobin 13.9 g/dL (11.5-16.0); IMMATURE GRAN ABSOLUTE AUTO 0.02 K/mm3 (0.00-0.10); IMMATURE GRAN PERCENT AUTO 0 % (0-1); LYMPHOCYTES ABSOLUTE AUTO 2.58 K/mm3 (0.84-5.20); LYMPHOCYTES PERCENT AUTO 30 % (21-46); MONOCYTES PERCENT AUTO 7 % (4-13); Mean Corpuscular HGB Conc 33.5 g/dL (31.5-36.5); Mean Corpuscular Volume 89 fL (80-100); Mean Platelet Volume 8.3 fL (9.1-12.4); NEUTROPHILS ABSOLUTE AUTO 4.43 K/mm3 (1.96-9.15); NEUTROPHILS PERCENT AUTO 51 % (41-73); Platelet Count 387 K/mm3 (150-400); RDW Coefficient Variation 12.5 % (11.7-14.2); RDW Standard Deviation 41.4 fL (35.1-46.3); Red Blood Cell Count 4.64 M/mm3 (3.80-5.20); White Blood Cell Count 8.73 K/mm3 (4.00-11.30)
[2024-05-10 12:39] LABS: Albumin, Blood 3.8 g/dL (3.4-5.0); Albumin/Globulin Ratio 0.8 (0.8-1.8); Bilirubin, Total 0.3 mg/dL (0.1-1.0); Bun/Creatinine Ratio 5.7 (12.0-20.0); Calcium, Blood 9.4 mg/dL (8.5-10.1); Creatinine, Blood 0.52 mg/dL (0.40-1.00); Globulin, Blood 4.5 g/dL (2.2-4.0); Potassium, Blood 3.2 mmol/L (3.5-5.5); Total Protein, Blood 8.3 g/dL (6.4-8.2)
[2024-05-10] MEDS ORDERED: Morphine Sulfate 4 MG/1 ML Injection IV ONE (12:40)
[2024-05-10] MEDS ORDERED: Ondansetron HCl 2 MG / ML 2ML Vial IV ONE (12:40)
[2024-05-10 12:41] LABS: Source, Urine Clean Catch
[2024-05-10] MEDS ORDERED: NS 1,000 ML IV SCH (12:45)
[2024-05-10 12:54] LABS: Appearance, Urine Clear (Clear); Bilirubin, Urine Neg (Neg); Blood, Urine Neg (Neg); Color, Urine Pale Yellow (P-Yellow); Glucose Qualitative, Urine Neg (Neg); Ketones, Urine Neg (Neg); Leukocyte Esterase, Urine Neg (Neg); Nitrite, Urine Neg (Neg); Protein, Urine Neg (Neg); Urobilinogen, Urine NORM (Normal)
[2024-05-10] MEDS ORDERED: ONDA4 PO (13:39)
[2024-05-10] MEDS ORDERED: DICY20 PO (13:39)
[2024-05-10] MEDS ORDERED: ACET500 PO (13:39)
[2024-05-10 14:00] VITALS: BP 114/78
[2024-05-10] MEDS ORDERED: Potassium Chloride 20 MEQ TabCR PO ONE (14:20)
[2024-05-10] MEDS ORDERED: Magnesium Oxide 400 MG Tab PO ONE (14:20)
== END 2024-05-10 14:48 | disposition home or self-care (01) ==
LOC: ER 11:09
PROVIDERS: Student in an Organized Health Care Education/Training Program
DX: R10.30 Lower abdominal pain, unspecified (principal); I10 Essential (primary) hypertension; J45.909 Unspecified asthma, uncomplicated; E11.40 Type 2 diabetes mellitus with diabetic neuropathy, unspecified; Z88.5 Allergy status to narcotic agent; Z79.01 Long term (current) use of anticoagulants; Z79.899 Other long term (current) drug therapy; Z79.84 Long term (current) use of oral hypoglycemic drugs; F17.290 Nicotine dependence, other tobacco product, uncomplicated
CPT/HCPCS: 74177; 80053; 81003; 83690; 85025; 96361; 96374; 96375; 99284-25; A9270; J2270; J2405; J7030; Q9967

== ENCOUNTER 2024-11-10 17:03 | Emergency (ER) | payer BC, OTHER ==
[~2024-11-10] VITALS: Ht 162.6 cm; Wt 88.9 kg
[~2024-11-10 17:03] MED LIST changes: +ACET500 PO; +DICY20 PO
[2024-11-10 17:50] VITALS: BP 173/116
[2024-11-10 18:28] LABS: Alanine Aminotransfer (ALT/SGP 41.0 U/L (12-78); Albumin, Blood 3.6 g/dL (3.4-5.0); Albumin/Globulin Ratio 0.9 (0.8-1.8); Anion Gap 7.0 mmol/L (3-11); Aspartate Aminotrans (AST/SGOT 29.0 U/L (12-37); Bilirubin, Total 0.2 mg/dL (0.1-1.0); Blood Urea Nitrogen 9.0 mg/dL (8-24); CO2, Blood 26.0 mmol/L (21-32); Calcium, Blood 9.1 mg/dL (8.5-10.1); Chloride, Blood 110.0 mmol/L (98-108); Creatinine, Blood 0.56 mg/dL (0.40-1.00); Globulin, Blood 3.9 g/dL (2.2-4.0); Glucose, Blood 105.0 mg/dL (70-99); Potassium, Blood 3.8 mmol/L (3.5-5.5); Sodium, Blood 139.0 mmol/L (136-145); Total Protein, Blood 7.5 g/dL (6.4-8.2)
[2024-11-10 18:32] LABS: BASOPHILS ABSOLUTE AUTO 0.04 K/mm3 (0.00-0.23); BASOPHILS PERCENT AUTO 0 % (0-2); EOSINOPHILS ABSOLUTE AUTO 0.09 K/mm3 (0.00-0.68); EOSINOPHILS PERCENT AUTO 1 % (0-6); Hematocrit 39.6 % (33.0-51.0); Hemoglobin 12.9 g/dL (11.5-16.0); IMMATURE GRAN ABSOLUTE AUTO 0.05 K/mm3 (0.00-0.10); IMMATURE GRAN PERCENT AUTO 0 % (0-1); LYMPHOCYTES ABSOLUTE AUTO 2.24 K/mm3 (0.84-5.20); LYMPHOCYTES PERCENT AUTO 18 % (21-46); MONOCYTES ABSOLUTE AUTO 0.83 K/mm3 (0.16-1.47); MONOCYTES PERCENT AUTO 7 % (4-13); Mean Corpuscular HGB Conc 32.6 g/dL (31.5-36.5); Mean Corpuscular Volume 89 fL (80-100); NEUTROPHILS ABSOLUTE AUTO 9.30 K/mm3 (1.96-9.15); NEUTROPHILS PERCENT AUTO 74 % (41-73); NRBC ABSOLUTE 0.00 K/mm3 (0.00-0.02); NRBC Auto 0.0 /100 WBC (0.0-0.2); Platelet Count 374 K/mm3 (150-400); RDW Coefficient Variation 14.6 % (11.7-14.2); RDW Standard Deviation 46.8 fL (35.1-46.3)
== END 2024-11-10 20:12 | disposition left against medical advice (07) ==
LOC: ER 17:03
PROVIDERS: Student in an Organized Health Care Education/Training Program
DX: R42 Dizziness and giddiness (principal); Z53.21 Procedure and treatment not carried out due to patient leaving prior to being seen by health care provider; Z79.84 Long term (current) use of oral hypoglycemic drugs
CPT/HCPCS: 80053; 85025